=== PATIENT | male | born 1975 | race African-American/Black ===

== ENCOUNTER → 2016-06-10 | Outpatient (CLI) | payer OTHER ==
--- OUTSIDE RECORDS SUMMARY | 2016-06-10 13:10 | XMS REPORT ---
Author Author CARRI VELAZQUEZ [facility] [place] eClinicalWorks Address Unknown Phone Unavailable Care Team Providers Care Operating Room Manager Name Role Phone CARRI VELAZQUEZ CP Unavailable Allergies, Adverse Reactions, Alerts Substance Reaction Event Type N.K.D.A. Info Not Available Non Drug Allergy Problems Problem Type Condition Code Onset Dates Condition Status Problem HTN (hypertension) I10 Active Assessment Sciatica, right side M54.31 Active Problem Sciatica, right side M54.31 Active Medications Medication Code System Code Instructions Start Date End Date Status Dosage Cyclobenzaprine HCl [facility] [address]-96 10 mg Orally 2 times a day Feb 26, 2016 Mar 27, 2016 1 tablet Tramadol HCl [facility] [address]-85 50 mg Orally every 6 hrs Feb 26, 2016 1 tablet as needed PredniSONE [facility] [address]-95 20 mg Orally Once a day Feb 26, 2016 Mar 02, 2016 2 tablets Procedures Procedure Coding System Code Date Office Visit, Est Pt., Level 3 CPT-4 16680 Feb 26, 2016 Vital Signs Date/Time: Feb 26, 2016 Cardiac Monitoring Heart Rate 76 bpm Weight 264.6 lbs Height 77 in BMI 31.37 Index Blood Pressure Diastolic 82 mmHg Blood Pressure Systolic 122 mmHg Results No Known Results Summary Purpose eClinicalWorks Submission
--- NOTE | 2016-06-10 14:20 | Diagnostic Imaging Report ---
PROCEDURE: MRI lumbar spine. TECHNIQUE: Multiplanar, multisequence MRI of the lumbar spine was performed without contrast. INDICATION: Low back pain. Sciatica. COMPARISON: None. FINDINGS: There are five lumbar-type vertebral bodies presumed for the purposes of this report. Vestigial disc at S1-S2. There is minimal retrolisthesis of L5 on S1. Alignment is otherwise unremarkable. Vertebral body heights are maintained. Normal bone marrow signal without evidence of acute fracture. Normal signal within the conus which terminates at L1. Normal configuration of the cauda equina without evidence of arachnoiditis. The visualized paravertebral soft tissues are unremarkable. L1-L2: No spinal canal, lateral recess, or neuroforaminal narrowing. L2-L3: No spinal canal, lateral recess, or neuroforaminal narrowing. L3-L4: No spinal canal, lateral recess, or neuroforaminal narrowing. L4-L5: Annular disc bulge and ligamentous hypertrophy contribute to mild bilateral lateral recess and spinal canal narrowing. Disc space height loss and facet arthropathy result in mild right neuroforaminal narrowing. L5-S1: There is a broad-based disc bulge which effaces both lateral recesses and contributes to mild spinal canal narrowing. Disc space height loss and facet arthropathy also contribute to moderate bilateral neuroforaminal narrowing. IMPRESSION: 1. Broad-based disc bulge effaces the lateral recesses bilaterally at L5-S1. 2. No high-grade spinal canal narrowing in the lumbar spine. 3. Moderate bilateral neuroforaminal narrowing at L5-S1. Dictated by: Dictated on workstation # [id number]
== END ==
LOC: RAD 13:07
PROVIDERS: ATTEND Nurse Practitioner Community Health
DX: M54.41 Lumbago with sciatica, right side (principal); R26.9 Unspecified abnormalities of gait and mobility
CPT/HCPCS: 72148

== ENCOUNTER → 2018-02-15 | Outpatient (CLI) | payer OTHER ==
[~2018-02-15] MED LIST: CATHETER FLUSH 10 ML SYR IV PRN; IOHEXOL 350 MG/ML 100 ML (OMNIPAQUE 350) VIAL IV ONE; NS 250 ML (IVPB) BAG IV ONE; RECEIVED CONTRAST (Hold Metformin) IV SCH
--- NOTE | 2018-02-15 16:10 | Diagnostic Imaging Report ---
PROCEDURE: CT chest with contrast only. TECHNIQUE: Multiple contiguous axial images were obtained through the chest after administration of intravenous contrast. INDICATION: Lung nodule. COMPARISON: Chest radiograph dated 07/05/2010. FINDINGS: Evaluation of the lung windows demonstrates multiple calcified benign granulomas, partially calcified micronodules, and noncalcified micronodules. These are as follows: * Benign calcified granuloma within the posterolateral margins of the lingula of the left upper lobe. * Slightly more inferior to this, there is a subpleural 7 mm micronodular density also within the lingula (image 42, series 2). * Noncalcified subpleural 6 mm micronodular density is seen within the anterior margins of the right upper lobe as well (image 25, series 2). * Benign calcified granuloma within the dome of the right middle lobe that measures 4 mm (image 32, series 2). * Within the medial segment of the right middle lobe, there is also a 5 mm noncalcified micronodular density (image 37, series 2). * Within the posterior inferior margins of the right middle lobe adjacent to the posterior pleura, there is a 7 mm micronodular density. There is suggestion of central punctate calcification (image 43, series 2). * Partially calcified micronodule is also seen within the medial margins of the superior segment of the right lower lobe and measures 6 mm (image 31, series 2). * Further superiorly also within the superior segment of the right lower lobe, there is a noncalcified small 4 mm micronodular density (image 25, series 2). * A 5-6 mm noncalcified micronodule is also present within the more lateral portion of the right lower lobe (image 38, series 2). * Finally, there is a 5 mm micronodular density within the base of the right lower lobe, medially. There is suggestion of punctate central calcification (image 46, series 2). There is no focal consolidation, pleural effusion, nor pneumothorax. Cardiomediastinal structures show normal heart size. There is no large pericardial effusion. Prominent right hilar lymph node measures 1.3 x 1.4 cm. No abnormal left hilar adenopathy is seen. There are, however, a few prominent mediastinal lymph nodes. Precarinal lymph node measures 1.6 x 1.1 cm. Prominent AP window lymph node is also seen and measures 2 x 0.8 cm. Prominent right axillary lymph node measures 1.7 x 1.3 cm. Despite its prominence in size, it does show preservation of normal fatty hilum. Bony structures show no acute abnormalities. Included portions of the upper abdomen are unremarkable. IMPRESSION: 1. Multiple calcified, partially calcified, and noncalcified micronodular densities are seen bilaterally. The largest of these measures 7 mm in density. Granuloma in various stages of calcification is favored. However, followup is recommended to ensure ongoing stability and benignity. Please see below for followup recommendations. 2. Prominent mediastinal and right hilar lymph nodes, which may be on the basis of underlying granulomatous disease as well. Again, followup is recommended. PULMONARY NODULE FOLLOW-UP Multiple nodules: 6-8 mm in size: * Low risk patient - CT at 3-6 months, then consider CT at 18-24 months * High risk patient - CT at 3-6 months, then at 18-24 months Dictated by: Dictated on workstation # [id number]
== END ==
LOC: RAD 13:39
PROVIDERS: ATTEND Nurse Practitioner Community Health
DX: J98.4 Other disorders of lung (principal)
CPT/HCPCS: 71260

== ENCOUNTER → 2018-08-29 | Outpatient (CLI) | payer OTHER ==
--- NOTE | 2018-08-29 11:43 | Diagnostic Imaging Report ---
PROCEDURE: CT chest with contrast only. TECHNIQUE: Multiple contiguous axial images were obtained through the chest after administration of intravenous contrast. Auto Exposure Controls were utilized during the CT exam to meet ALARA standards for radiation dose reduction. INDICATION: Pulmonary nodule Comparison made with prior examination from 02/15/2018 FINDINGS: There is an unchanged 6 mm noncalcified nodular density in the anterior aspect of the right upper lobe. There is an unchanged calcified granuloma in the medial aspect of the right middle lobe measuring 6 mm. There is an unchanged 3 mm nodule adjacent to the fissure in the right lung. There is an unchanged 5 mm nodule along the right heart border and right middle lobe. There is an unchanged noncalcified 5 mm nodule in the superior segment of the right lower lobe. There is an unchanged noncalcified nodule in the posterior aspect of the right middle lobe adjacent to fissure measuring 7 mm there is an unchanged calcified nodule medial aspect of the right lower lobe measuring 5 mm. There is an unchanged noncalcified nodule in the lingula measuring 7 mm. There is an unchanged 4 mm nodule also in the posterior aspect of the lingula. No new pulmonary nodules or masses are appreciated. There is an unchanged AP window lymph node measuring 0.8 x 1.9 cm. There is an unchanged treated pretracheal lymph node measuring 1 cm. There is an unchanged right hilar lymph node measuring 1.3 x 1.3 cm. Unchanged reactive adenopathy in the axilla bilaterally. There is no pleural or pericardial fluid. There is no pneumothorax. Heart size is normal. Thoracic aorta normal in caliber. Visualized intra-abdominal structures are unremarkable. Osseous structures are unremarkable. IMPRESSION: Multiple unchanged calcified, partially calcified and noncalcified micronodular densities bilaterally. Largest measures up to 7 mm. Additionally there are some unchanged mild mediastinal adenopathy. This is all thought to be on the basis of granulomatous disease. Recommend additional six-month followup to ensure stability. No other acute abnormality in the chest. Dictated by: Dictated on workstation # [id number]
== END ==
LOC: RAD 07:44
PROVIDERS: ATTEND Nurse Practitioner Community Health
DX: J84.10 Pulmonary fibrosis, unspecified (principal); J98.4 Other disorders of lung; R91.1 Solitary pulmonary nodule; R59.0 Localized enlarged lymph nodes
CPT/HCPCS: 71260

== ENCOUNTER → 2019-03-19 | Outpatient (CLI) | payer OTHER ==
--- NOTE | 2019-03-19 16:47 | Diagnostic Imaging Report ---
PROCEDURE: MR imaging of the chest without contrast. TECHNIQUE: Multiplanar, multisequence non-contrast MR imaging of the chest was performed. INDICATION: Pulmonary nodule. COMPARISON: Correlation is made with CT study from 08/29/2018. FINDINGS: Evaluation of pulmonary parenchymal pathology is significantly limited with MRI due to poor temporal resolution from respiratory motion. There does appear to be a tiny nodule in the lingula, similar to prior CT. No pericardial or pleural fluid is identified. No definite hilar or mediastinal lymphadenopathy is seen. No axillary lymphadenopathy is seen. No definite chest wall pathology is detected. Imaging of the upper abdomen is unremarkable. IMPRESSION: Unremarkable MRI of the chest although MRI is a poor modality for the evaluation of pulmonary nodules. CT chest is much better at characterizing pulmonary nodules and as per prior CT studies recommendation, follow-up CT chest would be recommended to further follow-up previously described pulmonary nodules. No mediastinal lymphadenopathy or chest effusion is detected. Dictated by: Dictated on workstation # [id number]
== END ==
LOC: RAD 15:10
PROVIDERS: ATTEND Nurse Practitioner Community Health
DX: R91.8 Other nonspecific abnormal finding of lung field (principal)
CPT/HCPCS: 71550

== ENCOUNTER → 2019-04-02 | Outpatient (CLI) | payer OTHER ==
[~2019-04-02] MED LIST changes: +HOLD METFORMIN - RECEIVED CONTRAST 20 ML VIAL IV SCH; +NS 100 ML (IVPB) BAG IV ONE; -NS 250 ML (IVPB) BAG IV ONE; -RECEIVED CONTRAST (Hold Metformin) IV SCH
--- NOTE | 2019-04-02 09:50 | Diagnostic Imaging Report ---
PROCEDURE: CT chest with contrast only. TECHNIQUE: Multiple contiguous axial images were obtained through the chest after administration of intravenous contrast. Auto Exposure Controls were utilized during the CT exam to meet ALARA standards for radiation dose reduction. INDICATION: Follow-up of pulmonary nodules. Comparison with 08/29/2018. FINDINGS: Bilateral pulmonary nodules are again noted as reported previously. No new lesions are seen. There is calcification present within all of the nodules on today's exam. Nodules have not changed significantly in size. Good opacification aorta and pulmonary arteries which appear normal. No mediastinal or hilar adenopathy of pathologic size. There is mild axillary adenopathy bilaterally which is stable. No pleural effusion or pericardial effusion. No blastic or lytic bony lesions. IMPRESSION: Stable CT chest scan of the chest with multiple parenchymal nodules all of which are stable in size and now show calcification within the nodules. Dictated by: Dictated on workstation # [id number]
== END ==
LOC: RAD 09:00
PROVIDERS: ATTEND Nurse Practitioner Community Health
DX: R91.8 Other nonspecific abnormal finding of lung field (principal)
CPT/HCPCS: 71260

== ENCOUNTER → 2020-09-01 | Outpatient (CLI) | payer OTHER ==
--- NOTE | 2020-09-01 09:42 | Diagnostic Imaging Report ---
PROCEDURE: MRI lumbar spine. TECHNIQUE: Multiplanar, multisequence MRI of the lumbar spine was performed without contrast. INDICATION: Back pain The previous MRI lumbar spine exam of 06/10/2016 noted a broad-based disc bulge centrally at the L5-S1 level. The disc flattens the ventral aspect of the thecal sac and narrow the neural foramen bilaterally. On this exam the disc does seem somewhat more prominent and now appears to be eccentric to the right. I suspect the disc is in close proximity to the exiting right nerve root at this level. There is still neuroforaminal narrowing on the left as well. The prior exam also noted a disc bulge centrally at L4-L5. The disc effaces the ventral aspect of the thecal sac but did not produce central stenosis. There was mild neural foraminal narrowing bilaterally. Those findings are again evident on this study and do not appear to have changed significantly. The remainder of the lumbar spine is also stable when compared to the prior exam. There is no new area of spinal stenosis or neural foraminal narrowing identified. There is no abnormal signal arising from the osseous structures to indicate bone edema or a fracture. There is no sign of a paraspinal mass. Impression: 1. The degenerative disc disease at the L5-S1 level seen previously has progressed somewhat. There is now a disc bulge eccentric to the right at this level. This does result in spinal stenosis and there may well be encroachment of the exiting right nerve root at this level. 2. The overall appearance of the lumbar spine is otherwise stable. No new area of spinal stenosis or nerve root encroachment has developed. 3. There is no sign of an acute bony abnormality or of a cord lesion. Dictated by: Dictated on workstation # [id number]
== END ==
LOC: RAD 08:00
PROVIDERS: ATTEND Nurse Practitioner Family
DX: M51.17 Intervertebral disc disorders with radiculopathy, lumbosacral region (principal)
CPT/HCPCS: 72148